=== PATIENT | male | born 1935 | race Caucasian/White ===

== ENCOUNTER 2021-12-31 15:53 | Day surgery (SDC) | payer MEDICARE, OTHER ==
[2021-12-31] MEDS ORDERED: XYLOCAINE-MPF 1% 5ML SDV IJ ONE (15:54)
[2021-12-31] MEDS ORDERED: Marcaine Mpf 0.5% Vial 30 Ml IJ ONE (15:54)
[2021-12-31] MEDS ORDERED: Depo-Medrol 40 MG/ML IM ONE (15:54)
--- NOTE | 2021-12-31 18:07 | XRAY ---
Indication: Left SI joint injection. Intraoperative fluoroscopy provided for 19 seconds. 3 digital spot image submitted for interpretation demonstrates posterior needle tip projecting over the left SI joint. Correlate with intraoperative findings/report.
--- NOTE | 2022-01-01 12:00 | XRAY ---
19 seconds of fluoroscopy was used in surgery for a left SI joint injection.
== END 2021-12-31 17:50 | disposition home or self-care (01) ==
LOC: SDC-PAIN 15:53
PROVIDERS: ATTEND Psychiatry & Neurology Pain Medicine
DX: M46.1 Sacroiliitis, not elsewhere classified (principal)
CPT/HCPCS: 27096; 72170; 77002; G0260; J1030